=== PATIENT | male | born 1990 | race Caucasian/White ===

== ENCOUNTER 2018-05-06 13:25 | Emergency (ER) | payer OTHER ==
[~2018-05-06 13:25] MED LIST: ADAL40PE SUBCUT
--- NOTE | 2018-05-06 14:07 | NUR ---
Not in lobby
--- NOTE | 2018-05-06 14:20 | NUR ---
Not in lobby
--- NOTE | 2018-05-06 14:35 | NUR ---
Not in lobby
--- NOTE | 2018-05-07 08:20 | NUR ---
Called to request patient to return to ER. Phone number disconnected.
== END 2018-05-06 14:39 | disposition left against medical advice (07) ==
LOC: ER 13:26
DX: N50.89 Other specified disorders of the male genital organs (principal); Z53.21 Procedure and treatment not carried out due to patient leaving prior to being seen by health care provider

== ENCOUNTER 2019-02-23 21:54 | Emergency (ER) | payer OTHER ==
[~2019-02-23] VITALS: Ht 170.2 cm; Wt 62.7 kg
[2019-02-24 02:16] LABS: BASOPHILS # (AUTO) 0.1 X10'3 (0-0.2); EOSINOPHILS # (AUTO) 0.4 X10'3 (0-0.9); EOSINOPHILS % (AUTO) 4.4 % (0-6); HEMATOCRIT 34.2 % (42.0-52.0); HEMOGLOBIN 11.4 g/dl (14.0-17.9); LYMPHOCYTES # (AUTO) 1.5 X10'3 (1.1-4.8); LYMPHOCYTES % (AUTO) 17.1 % (21-51); MEAN CORPUSCULAR HEMOGLOBIN 27.8 PG (27.0-31.0); MEAN CORPUSCULAR HGB CONC 33.4 g/dL (33.0-36.5); MEAN CORPUSCULAR VOLUME 83.2 FL (78-98); MEAN PLATELET VOLUME 8.4 FL (7.4-10.4); MONOCYTES # (AUTO) 0.9 X10'3 (0-0.9); MONOCYTES % (AUTO) 10.4 % (2-12); NEUTROPHILS # (AUTO) 5.7 X10'3 (1.8-7.7); NEUTROPHILS % (AUTO) 67.1 % (42-75); PLATELET COUNT 324 X10'3 (140-440); RED BLOOD COUNT 4.11 X10'6 (4.70-6.10); RED CELL DISTRIBUTION WIDTH 14.6 % (11.5-14.5); WHITE BLOOD COUNT 8.5 X10'3 (4.5-11.0)
[2019-02-24 02:35] LABS: ALANINE AMINOTRANSFERASE 15 U/L (12-78); ALBUMIN 2.6 G/DL (3.4-5.0); ALBUMIN/GLOBULIN RATIO 0.6 (1.1-1.5); ALKALINE PHOSPHATASE 82 IU/L (46-116); ANION GAP 6 (8-16); ASPARTATE AMINO TRANSFERASE 19 U/L (10-37); BILIRUBIN,TOTAL 0.1 MG/DL (0.1-1.0); BLOOD UREA NITROGEN 16 MG/DL (7-18); BUN/CREATININE RATIO 15.8 (5.4-32.0); CALCIUM 8.5 MG/DL (8.5-10.1); CHLORIDE 106 MMOL/L (99-107); CREATININE 1.01 MG/DL (0.60-1.10); GLUCOSE 89 MG/DL (70-104); SODIUM 140 MMOL/L (135-145); TOTAL CARBON DIOXIDE 27.6 MMOL/L (24-32); TOTAL PROTEIN 6.7 G/DL (6.4-8.2); eGFR 87 ML/MIN
[2019-02-24 02:41] LABS: POTASSIUM 4.1 MMOL/L (3.5-5.1)
[2019-02-24 02:57] VITALS: BP 123/74
== END 2019-02-24 02:59 | disposition home or self-care (01) ==
LOC: ER 21:54
DX: R60.0 Localized edema (principal); M25.561 Pain in right knee; M25.562 Pain in left knee; M79.672 Pain in left foot; F41.9 Anxiety disorder, unspecified; F32.9 Major depressive disorder, single episode, unspecified; F15.90 Other stimulant use, unspecified, uncomplicated; Z91.040 Latex allergy status; Z88.8 Allergy status to other drugs, medicaments and biological substances; Z56.0 Unemployment, unspecified; Z59.0 Homelessness
CPT/HCPCS: 36415; 73620; 80053; 83880; 85025; 99284

== ENCOUNTER 2021-01-23 15:54 | Emergency (ER) | payer MEDICAID | END 2021-01-23 18:38 | disposition left against medical advice (07) | LOC: ER 15:55 | DX: Z53.21 Procedure and treatment not carried out due to patient leaving prior to being seen by health care provider (principal) ==

== ENCOUNTER 2021-07-08 20:21 | Emergency (ER) | payer MEDICAID | END 2021-07-08 21:13 | disposition left against medical advice (07) | LOC: ER 20:22 | DX: R51.9 Headache, unspecified (principal); Z53.21 Procedure and treatment not carried out due to patient leaving prior to being seen by health care provider ==